=== PATIENT | female | born 1960 | race Caucasian/White ===

== ENCOUNTER 2024-05-02 15:16 | Emergency (ER) | payer BC, SELFPAY ==
[2024-05-02 15:18] VITALS: BP 143/93
--- NOTE | 2024-05-02 15:49 | ED.GENMED ---
History of Present Illness
General
Chief Complaint: Musculo-Skeletal Complaint
Source: patient
Time Seen by Provider: 05/02/24 15:24
History of Present Illness
History of Present Illness:
64-year-old female with no significant past medical history presenting emergency department for evaluation of left shoulder pain and inability to range of motion following an accidental fall approximately 3 hours prior to arrival to the emergency
department. [place] concrete surface. Denies any head injury, loss consciousness, vomiting or visual changes. She took 1 Advil prior to arrival to the ER with minimal relief of
pain. Denies any previous history of injury or surgery.
Past History
Past History
ED Past Medical History: None
ED Past Surgical History: Orthopedic
Social History
Tobacco: Non-smoker
Alcohol: None
Drug: None
Personal:
Living: with family
Review of Systems
Review of Systems
All Other Systems: ROS reviewed and negative except as documented in HPI and ROS
Phy Exam
Physical Exam
Physical Exam:
GENERAL: Alert , in no apparent distress but does appear in discomfort
EYE: conjunctiva clear
Head: Normocephalic atraumatic
NECK: Supple,
ENT: mmm.
LUNGS: no acute respiratory distress
NEUROLOGICAL: Alert and oriented
SKIN: Warm and dry, skin intact.
MUSCULOSKELETAL: Left upper extremity: Held abducted against the body with her elbow flexed at 90 degrees. There is no obvious deformity of the left shoulder but patient does not allow for any range of motion. There is tenderness over the proximal
humerus. Patient without pain over the distal humerus, elbow, forearm, wrist or hand. Easily palpable radial pulse. Cap refill less than 2 seconds. Sensation grossly intact to light touch throughout all digits.
PSYCH: Normal and appropriate interaction.
Scores
Heart Failure Risk
Heart Failure Risk Score: Not Applicable
Heart Score for Chest Pain Patients
STEMI patient?: Not applicable
Withdrawal Assessment of Alcohol
Withdrawal Assessment Completed?: Not applicable
Course
Orders/Labs/Results
Orders:
Orders
05/02/24 15:21
CR Shoulder, Trauma - Left Urgent
Comment:
Reason For Exam: fall
05/02/24 15:48
Ibuprofen [Motrin] 400 mg PO NOW STA
Oxycodone/Acetaminophen [Percocet 5/325] 1 tablet PO NOW STA
05/02/24 15:51
Sling Left-Treatment ONCE
Vital Signs
Initial and Last Documented VS:
Initial Vital Signs
Temp Pulse Resp BP Pulse Ox
98.3 F 91 20 143/93 98
05/02/24 15:18 05/02/24 15:18 05/02/24 15:18 05/02/24 15:18 05/02/24 15:18
Last Documented Vital Signs
Temp Pulse Resp BP Pulse Ox
98.3 F 91 20 143/93 98
05/02/24 15:18 05/02/24 15:18 05/02/24 15:18 05/02/24 15:18 05/02/24 15:18
MDM/Problems Addressed
Differential Diagnosis Includes:
Sprain, contusion, fracture, dislocation
MDM/Problems Addressed:
64-year-old female presenting emergency department for evaluation following an accidental trip and fall earlier today. Patient with considerable pain and inability to range of motion the left shoulder. X-ray had been ordered from triage and shows
a comminuted and mildly displaced proximal left humerus fracture. Discussed management as well as outpatient care with patient and spouse. They will be placed in a sling for comfort. Percocet and Motrin ordered for pain control here.
Prescription for this also sent to patient's pharmacy. Stable for discharge and outpatient management.
*Radiology
Radiology exam reviewed: preliminary read by ED provider (Proximal left humerus fracture)
*Pulse Oximetry
Patient hypoxic: no
*Critical Care Note
Total Time (30-74mins, 75-104mins- exclusive of procedures): Not Applicable
ED Attending Note
-
Portions of this chart may have been created with voice recognition software.� Occasional wrong word or��sound alike� substitutions may have occurred due to the inherent limitations of voice recognition software.
Discharge Plan
Departure
Patient Disposition: Home (Routine Discharge)
Date of Disposition: 05/02/24
Time of Disposition: 15:49
Patient with high blood pressure during this ER visit?: Yes
Discharge Problem:
Closed fracture of proximal end of left humerus
Instructions: Upper Arm Fracture ED
Prescriptions:
New
oxycodone-acetaminophen [Percocet] 5-325 mg tablet
1 tab PO Q6HPRN PRN (Reason: pain) Qty: 6 0RF
Referrals:
Milton Elizabeth MD [Active] - (Ortho)
Marcella Delgado MD [Family Provider] -
Interventions
Interventions:
*Risk Screen - Suicide Last Done: 05/02/24 15:18
*General Assessment Last Done: 05/02/24 15:18
*Neglect/Abuse Screening Last Done: 05/02/24 15:18
Discharge Date and Time
Print Language: [id number]
[2024-05-02] MEDS: PERCOCET 5/325 1 TABLET PO (16:00)
[2024-05-02] MEDS: MOTRIN 400 MG PO (16:01)
== END 2024-05-02 16:10 | disposition home or self-care (01) ==
LOC: EMR 15:16
PROVIDERS: EMERGENCY PHYSICIAN Emergency Medicine; FAMILY PHYSICIAN Family Medicine
DX: S42.202A Unspecified fracture of upper end of left humerus, initial encounter for closed fracture (principal); W18.09XA Striking against other object with subsequent fall, initial encounter; R03.0 Elevated blood-pressure reading, without diagnosis of hypertension
CPT/HCPCS: 99283; 73030

== ENCOUNTER → 2024-08-06 08:42 | Outpatient (REF) | payer BC, SELFPAY | LOC: RAD 08:42 | PROVIDERS: ATTENDING PHYSICIAN Family Medicine | DX: Z78.0 Asymptomatic menopausal state (principal) | CPT/HCPCS: 77080 ==

== ENCOUNTER → 2025-02-06 15:05 | Outpatient (REF) | payer BC, SELFPAY | LOC: WDC 15:05 | PROVIDERS: ATTENDING PHYSICIAN Family Medicine | DX: Z12.31 Encounter for screening mammogram for malignant neoplasm of breast (principal) | CPT/HCPCS: 77063; 77067 ==

== ENCOUNTER → 2025-02-14 08:59 | Outpatient (REF) | payer BC, SELFPAY | LOC: HWRCS 08:59 | PROVIDERS: ATTENDING PHYSICIAN Family Medicine | DX: Z00.00 Encounter for general adult medical examination without abnormal findings (principal); R01.1 Cardiac murmur, unspecified | CPT/HCPCS: 93306 ==

== ENCOUNTER → 2025-08-19 14:47 | Outpatient (REF) | payer BC, SELFPAY | LOC: RAD 14:47 | PROVIDERS: ATTENDING PHYSICIAN Obstetrics & Gynecology Gynecology; FAMILY PHYSICIAN Family Medicine | DX: N95.0 Postmenopausal bleeding (principal) | CPT/HCPCS: 76830; 76856 ==